=== PATIENT | female | born 1975 | race Asian ===

== ENCOUNTER 2016-12-19 07:14 | Inpatient (IN) | payer OTHER ==
[~2016-12-19] VITALS: Ht 157.5 cm; Wt 51.9 kg
[2016-12-19 07:39] VITALS: BP 103/73
--- NOTE | 2016-12-19 08:04 | NUR ---
LABS AND STOOL SAMPLE COLLECTED
[2016-12-19 08:08] LABS: HEMOGLOBIN 14.4 g/dL (12.0-16.0); MEAN CORPUSCULAR HEMOGLOBIN 29 pg (27-31); MEAN CORPUSCULAR HGB CONC 33 g/dL (33-37); MEAN CORPUSCULAR VOLUME 90 fL (80-94); PLATELET COUNT (AUTO) 418 K/uL (140-450); RED BLOOD CELL COUNT(AUTO) 4.92 MIL/uL (4.20-5.40); RED CELL DISTRIBUTION WIDTH 12.4 % (11.6-13.7)
[2016-12-19 08:18] LABS: ANION GAP 14.4 (8-16); CALCIUM 9.3 mg/dL (8.5-10.1); CARBON DIOXIDE 27.6 mmol/L (21-32); CREATININE 0.9 mg/dL (0.6-1.3)
[2016-12-19 08:25] LABS: ALBUMIN 4.6 g/dL (3.4-5.0); TOTAL BILIRUBIN 0.4 mg/dL (0.0-1.0); TOTAL PROTEIN, SERUM 9.6 g/dL (6.4-8.2)
[2016-12-19 08:36] LABS: BAND % (MANUAL) 6 % (0-8); BASOPHILS % (MANUAL) 1 % (0-2); EOSINOPHILS % (MANUAL) 4 % (0-4); LYMPHOCYTES % (MANUAL) 6 % (20-46); MONOCYTES % (MANUAL) 3 % (5-12); NEUTROPHILS % (MANUAL) 80 (43-65)
--- NOTE | 2016-12-19 10:06 | NUR ---
patient ambulated to bed#4
--- NOTE | 2016-12-19 10:10 | NUR ---
PATIENT PRESENTS TO ED WITH C/O AWOKE TODAY WITH NAUSEA VOMITING AND WATERY STOOLS ---3 EPISODE OF WATERY STOOLS AND 2 EPISODES OF EMESIS ---GENERALIZED ABDOMINAL PAIN DENIES DYSURIA HX----DENIES RX----MULTI VITAMINS SKIN IS PINK/WARM/DRY; AAOX4 WITH EVEN AND STEADY GAIT; LUNGS CLEAR BL; HR EVEN AND REGULAR; PT DENIES ANY FEVER, CP, SOB, OR COUGH AT THIS TIME; PATIENT STATES PAIN OF 8/10 AT THIS TIME; VSS; PATIENT POSITIONED FOR COMFORT; HOB ELEVATED; BEDRAILS UP X2; BED DOWN. ER MD MADE AWARE OF PT STATUS.
[2016-12-19] MEDS ORDERED: NACL 0.9% 1,000 ML IV ONE ×2 (11:45→15:20)
[2016-12-19] MEDS ORDERED: ONDANSETRON 4 MG/2 ML VIAL IVP ONE (11:45)
[2016-12-19] MEDS ORDERED: FAMOTIDINE 20 MG/2 ML VIAL IVP ONE (11:45)
[2016-12-19 11:59] LABS: APPEARANCE,URINE CLEAR (CLEAR); BILIRUBIN,URINE NEGATIVE (NEGATIVE); BLOOD, URINE TRACE-I (NEGATIVE); COLOR,URINE YELLOW (YELLOW); LEUKOCYTE ESTERASE ,URINE NEGATIVE (NEGATIVE); NITRITE, URINE NEGATIVE (NEGATIVE); PH,URINE 5.5 (5.0-9.0); PROTEIN,URINE NEGATIVE (NEGATIVE); UGLUCOSE NEGATIVE (NEGATIVE); UROBILINOGEN,URINE 0.2 EU/dL (0.2 - 1)
[2016-12-19 12:03] LABS: BACTERIA,URINE OCCASSIONAL /HPF (None Seen); RBC,URINE 0-2 /HPF (0-5); SQUAMOUS EPITHELIAL CELL,UR 0-3 (FEW) /LPF (0-3 (FEW)); WBC,URINE 0-2 /HPF (0-5)
[2016-12-19 12:27] LABS: AMYLASE 60 U/L (25-115); LIPASE 176 U/L (73-393)
--- NOTE | 2016-12-19 13:24 | NUR ---
Patient returned from CT scan. RN re-evaluating patient at bedside.
--- NOTE | 2016-12-19 14:56 | NUR ---
PT RESTING COMFORTABLY ON BED NO C/O PAIN OR ACUTES DISTRESS NOTED AT THIS TIME, REQUEST FOR FOOD BUT INFORM NPO AT THIS TIME PER DR ZHANG, AT BEDSIDE, WILL CONTINUE TO MONITOR
[2016-12-19] MEDS ORDERED: cefTRIAXone 2,000 MG in DEXTROSE 5% 100 ML IV ONE (15:20)
[2016-12-19] MEDS ORDERED: cefTRIAXone 2,000 MG VIAL ONE ×2 (15:34→16:19)
[2016-12-19] MEDS ORDERED: LIDOCAINE VISCOUS 2% 20 ML UDC ONE (16:06)
[2016-12-19] MEDS ORDERED: cefTRIAXone 2,000 MG in DEXTROSE 5% 100 ML IV SCH (16:16)
[2016-12-19] MEDS ORDERED: HYDROcodone/APAP 7.5/325 MG 1 TAB PO PRN (16:30)
[2016-12-19] MEDS ORDERED: MORPHINE SULFATE 2 MG/ML SYR IVP PRN (16:30)
[2016-12-19] MEDS ORDERED: ONDANSETRON 4 MG/2 ML VIAL IM/IVP PRN (16:30)
[2016-12-19] MEDS ORDERED: ACETAMINOPHEN 325 MG TAB PO PRN (16:30)
[2016-12-19] MEDS ORDERED: DOCUSATE SODIUM 100 MG GELCAP PO PRN (16:30)
--- NOTE | 2016-12-19 16:35 | NUR ---
Patient will be admitted to care of DR MONDRAGON. Admited to TELE. Will go to room 125. Belongings list completed. Report to MARIO SOUSA.
[2016-12-19] MEDS ORDERED: SIMETHICONE 40 MG/0.6 ML PO SCH (16:45)
--- NOTE | 2016-12-19 16:45 | NUR ---
NG TUBE INSERTED BY MARIO RIGGINS 12FRENCH ON RIGHT NOSTRIL, PLACEMENT CONFIRM, AUDIBLE SOUND TOLERATED WELL
[2016-12-19] MEDS ORDERED: METOCLOPRAMIDE 10 MG/2 ML INJ VIAL IVP ONE (16:50)
[2016-12-19 17:30] LABS: PARTIAL THROMBOPLASTIN TIME 37.1 secs (22-35.6); PROTHROMBIN TIME 10.1 secs (10.8-13.4)
--- NOTE | 2016-12-19 17:30 | NUR ---
PT BROUGHT IN FROM ER IN [facility], PT AAOX4, RESP EVEN UNLABORED ON ROOM AIR IN NAD, SPEAKS CLEARLY, MOVES ALL EXT, REPORT RECIEVED FROM SAMMIE RN, PT WITH PIV TO LEFT AC, IVF INFUSING WELL, SITE CLEAR, NGT INPLACE RO RIGHT NARE, CONNECTED TO LOW INTERMITTENT SUCTION, DRAINING CLEAR LIGHT BROWN DRAINAGE, ABD SOFT, NON DISTENDED, TENDER TO PALP, + BS X4Q, PT DENIES NAUSEA, REPORTS MINOR ABD PAIN BUT DECLINES ANY PAIN MEDS, DR CUETO TO BEDSIDE FOR EVAL, PLAN OF CARE REVIEWED, PT VERBALIZED FULL UNDERSTANDING, PT ORIENTED TO ROOM AND FLOOR, AT BEDSIDE, CALL HA WITHIN REACH, SIDE RAILS UP, BED LOCKED IN LOW POSITION, WILL CONTINUE TO MONITOR.
[2016-12-19] MEDS: NACL 0.9% 1,000 ML IV SCH (17:46)
[2016-12-19 17:50] LABS: CHOL/HDL RATIO 2.5 (1-4.5); FREE T4 (FREE THYROXINE) 1.24 ng/dL (0.76-1.46); MAGNESIUM 2.2 mg/dL (1.8-2.4); PHOSPHORUS 4.9 mg/dL (2.5-4.9); THYROID STIMULATING HORMONE 1.2 uIU/mL (0.34-3.74)
--- NOTE | 2016-12-19 18:30 | NUR ---
PT SITTING UP IN BED RESTING QUIETLY, DENIES PAIN OR DISCOMFORT, NGT REMAINS TO LOW INTMT SUCTION, LEVAQUIN STARTED PER ORDER.
[2016-12-19] MEDS: LEVOFLOXACIN 500 MG/D5W PREMIX 100 ML IV SCH (18:44)
--- NOTE | 2016-12-19 19:25 | NUR ---
REPORT GIVEN TO TAILOR'S AIDE NURSE, PT STABLE.
--- NOTE | 2016-12-19 19:26 | NUR ---
RECEIVED REPORT FROM AM NURSE. PT SEEN ON BED AWAKE, AOX4. NO S/S OF DISTRESS. WITH AN IV ON THE LEFT AC, NS RUNNING, PATENT AND INTACT. WITH AN NG TUBE TO THE RIGHT NARE, CONNECTED TO LOW INTERMITTENT SUCTIONING, CLEAR DRAINAGE. ABDOMEN IS TENDER. WITH COMPLAINTS OF ABDOMINAL PAIN, BUT REFUSES PAIN MEDICATIONS. DISCUSSED PLAN OF CARE WITH PATIENT. WILL CONTINUE TO MONITOR. SAFETY CHECKS IN PLACE. CALL LIGHT WITHIN REACH.
--- NOTE | 2016-12-19 19:51 | NUR ---
RECEIVED A CALL FROM RADIOLOGY CRITICAL [facility] FROM [facility], [place] (PER SEAN) OF PATCHY NODULAR DENSITIES IN THE RIGHT UPPER LOBE THAT CAN REPRESENT PNEUMONIA OR TB. WILL NOTIFY
[2016-12-19 20:00] VITALS: BP 98/49
--- NOTE | 2016-12-19 20:23 | NUR ---
PT WENT TO CT SCAN VIA WHEELCHAIR. IN STABLE CONDITION.
--- NOTE | 2016-12-19 20:48 | NUR ---
PT RETURNED FROM CT SCAN, IS IN STABLE CONDITION. WITH BY BEDSIDE.
[2016-12-19] MEDS: metroNIDAZOLE 500 MG/NS PREMIX 100 ML IV SCH (20:55)
[2016-12-20] VITALS: BP 101/57
--- NOTE | 2016-12-20 | NUR ---
VITAL SIGNS STABLE. PT COMPLAINED OF PAIN. OFFERED PAIN MEDICATION, BUT DECLINED. WILL CONTINUE TO MONITOR. CALL LIGHT WITHIN REACH. SAFETY CHECKS IN PLACE.
--- NOTE | 2016-12-20 02:47 | NUR ---
PT SEEN ON BED ASLEEP. NO S/S OF DISTRESS. WILL CONTINUE TO MONITOR FOR ANY CHANGES. CALL LIGHT WITHIN REACH. SAFETY CHECKS IN PLACE.
[2016-12-20] MEDS: NACL 0.9% 1,000 ML IV SCH (03:37)
[2016-12-20 04:00] VITALS: BP 97/57
--- NOTE | 2016-12-20 04:00 | NUR ---
VITAL SIGNS STABLE. WILL CONTINUE TO MONITOR. CALL LIGHT WITHIN REACH.
[2016-12-20] MEDS: metroNIDAZOLE 500 MG/NS PREMIX 100 ML IV SCH ×2 (05:17→12:59)
[2016-12-20 06:33] LABS: ANION GAP 10.8 (8-16); CARBON DIOXIDE 24.6 mmol/L (21-32); CREATININE 0.6 mg/dL (0.6-1.3); POTASSIUM 3.4 mmol/L (3.5-5.1)
[2016-12-20 06:48] LABS: BASOPHILS # (AUTO) 0.1 K/uL (0.00-0.22); BASOPHILS % (AUTO) 1.1 % (0.0-2.0); EOSINOPHILS # (AUTO) 0.2 K/uL (0-0.4); EOSINOPHILS % (AUTO) 1.9 % (0.0-4.0); HEMATOCRIT 33.7 % (36-48); HEMOGLOBIN 10.9 g/dL (12.0-16.0); LYMPHOCYTES # (AUTO) 1.1 K/uL (2.5-16.5); LYMPHOCYTES % (AUTO) 13.9 % (20.5-51.1); MEAN CORPUSCULAR HEMOGLOBIN 29 pg (27-31); MEAN CORPUSCULAR HGB CONC 33 g/dL (33-37); MEAN CORPUSCULAR VOLUME 90 fL (80-94); MONOCYTES # (AUTO) 0.6 K/uL (0.8-1.0); MONOCYTES % (AUTO) 7.8 % (1.7-9.3); NEUTROPHILS % (AUTO) 75.3 % (42.2-75.2); PLATELET COUNT (AUTO) 267 K/uL (140-450); RED BLOOD CELL COUNT(AUTO) 3.75 MIL/uL (4.20-5.40); RED CELL DISTRIBUTION WIDTH 12.2 % (11.6-13.7)
--- NOTE | 2016-12-20 07:15 | NUR ---
ENDORSED TO AM SHIFT NURSE FOR CONTINUITY OF CARE. PT IS IN STABLE CONDITION.
--- NOTE | 2016-12-20 07:16 | NUR ---
RECEIVED REPORT FROM MAIL MESSENGER NURSE AT BEDSIDE. PT IS ALERT AWAKE AND ORIENTED. INTRODUCED MYSELF AND UPDATED THE BOARD. PT HAS NGT ON LOW SUCTION, DR IS TO ORDER REMOVAL. PT HAS IV ON L AC 20G RUNNING NS@90ML/HR. PT HAS NO COMPLAINTS AT THIS TIME. CALL LIGHT WITHIN REACH. WILL CONTINUE TO MONITOR.
[2016-12-20 08:00] VITALS: BP 102/60
[2016-12-20] MEDS ORDERED: metFORMIN 500 MG TAB PO SCH (08:00)
--- NOTE | 2016-12-20 08:00 | NUR ---
NGT REMOVED. PT TOLERATED WELL. ORDERED CLEAR LIQUID DIET. EDUCATED PT TO START EATING SLOWLY. CALL IF NEEDS HELP. CALL LIGHT WITHIN REACH. WILL CONTINUE TO MONITOR.
[2016-12-20] MEDS ORDERED: POTASSIUM CHLORIDE 10 MEQ TABER PO SCH (09:29)
[2016-12-20] MEDS ORDERED: LACTOBACILLUS RHAMNOSUS GG 1 EACH CAP PO SCH (09:29)
--- NOTE | 2016-12-20 09:40 | NUR ---
ADMINISTERED MEDS ORDERED. PT TOLERATED WELL. PT WASHED UP IN BATHROOM. CHANGED SHEETS AND CHANGED GOWN. PT TOLERATED WELL. NO DIZZINESS. VISITED AT BEDSIDE. CALL LIGHT WITHIN REACH. WILL CONTINUE TO MONITOR.
--- NOTE | 2016-12-20 11:30 | NUR ---
AT BEDSIDE. NO COMPLAINTS AT THIS TIME. CALL LIGHT WITHIN REACH. WILL CONTINUE TO MONITOR.
--- NOTE | 2016-12-20 13:00 | NUR ---
PT RESTING COMFORTABLY IN BED. CALL LIGHT WITHIN REACH. WILL CONTINUE TO MONITOR.
--- NOTE | 2016-12-20 14:00 | NUR ---
PT STATED SHE HAS HAD NO DISCOMFORT FROM REGULAR DIET AT LUNCH. WILL CONTINUE TO MONITOR.
[2016-12-20 16:00] VITALS: BP 100/51
--- NOTE | 2016-12-20 16:31 | NUR ---
NO COMPLAINTS AT THIS TIME. CALL LIGHT WITHIN REACH. WILL CONTINUE TO MONITOR.
[2016-12-20] MEDS: LEVOFLOXACIN 500 MG/D5W PREMIX 100 ML IV SCH (17:16)
[2016-12-20] MEDS ORDERED: [UNRECOGNIZED DRUG - CODE] PO (18:04)
[2016-12-20] MEDS ORDERED: METO-485 PO (18:04)
[2016-12-20] MEDS ORDERED: LAC PO (18:04)
[2016-12-20 18:09] VITALS: BP 100/51
--- NOTE | 2016-12-20 18:30 | NUR ---
WENT OVER PAPERWORK WITH PT AND . PT SIGNED ALL PAPERWORK AND VERBALIZED UNDERSTANDING. IV REMOVED CANNULA INTACT. ALL ID BANDS REMOVED. PT WILL GET DRESSED. WILL WHEEL PT OUT.
--- NOTE | 2016-12-20 18:50 | NUR ---
WHEELED PT OUT. ACCOMPANIED BY . PT TOOK ALL BELONGINGS. PT IN STABLE CONDITION.
[2016-12-21] MEDS ORDERED: LACTOBACILLUS RHAMNOSUS GG 1 EACH CAP PO SCH (09:00)
[2016-12-21 09:15] LABS: T4 (THYROXINE) 8.9 ug/dL (4.5-12.0)
[2016-12-22 06:25] LABS: HEMOGLOBIN A1C 5.4 % (4.8-5.6)
== END 2016-12-20 18:50 | disposition home or self-care (01) | DRG 391 ==
LOC: MED 07:14 → MMU 16:30
PROVIDERS: ADMIT Family Medicine; ATTEND Family Medicine
DX: K52.9 Noninfective gastroenteritis and colitis, unspecified (principal); N17.0 Acute kidney failure with tubular necrosis; K56.7 Ileus, unspecified; E87.6 Hypokalemia; J98.4 Other disorders of lung; R73.9 Hyperglycemia, unspecified; D71 Functional disorders of polymorphonuclear neutrophils; Z90.49 Acquired absence of other specified parts of digestive tract
CPT/HCPCS: 36415; 43753; 71010; 71250; 80048; 80053; 81001; 81025; 82150; 83036; 83690; 83735; 83880; 84100; 84436; 84439; 84443; 84479; 85025; 85610; 85730; 87045; 87081; 93005; 96361; 96374; 96375; 99285; J0696; J1956; J2405; J2765; J3490; J7030; J7060; Q0092; Q9967